=== PATIENT | female | born 2000 | race Caucasian/White ===

== ENCOUNTER 2023-06-11 09:49 | Emergency (ER) | payer OTHER, MEDICAID, SELFPAY ==
[2023-06-11] VITALS (29 sets, daily range): BP systolic 104–129; BP diastolic 47–81; PULSE 63–105; RESP 14–32; TEMP 36.9; O2SAT 97–100; BMI 31.1
--- NOTE | 2023-06-11 10:13 | PC.NURSE ---
Patient report given by Tr at [facility] to this RN.
--- NOTE | 2023-06-11 10:24 | DI.US.S_ITS ---
PROCEDURE: US OB <= 14 WEEKS FETUS INDICATIONS: PAIN OUTSIDE/PRIOR DATING DATA: Last menstrual period (LMP): 03/20/2023. LMP-based estimated date of delivery (FAREED): 12/15/2023. First dating scan (date and location): 06/11/2023. Estimated date of delivery (FAREED) from first dating scan: 12/12/2023 TECHNIQUE: Real-time scanning was performed of the fetus and maternal pelvic organs, with image documentation. Endovaginal scanning was also performed to better visualize the fetus and maternal ovaries. COMPARISON: None. FINDINGS: Embryo: A single living intrauterine gestation is present, with a heart rate of 168 beats per minute. biometrics: BPD: 24 mm; 14 weeks 0 days Head circumference: 89 mm; 14 weeks 0 days Abdominal circumference: 272 mm; 13 weeks 5 days Femur length: 11 mm; 13 weeks 2 days Estimated gestational age by clinical factors: 13 weeks 2 days Compazine gestational age by current ultrasound: 13 weeks 5 days Maternal organs: Ovaries not seen. IMPRESSION: Single living intrauterine gestation. We strive to produce accurate, complete, and clear reports of imaging services. To assist us in improving patient care, this report was composed using standard report templates and voice recognition software. Therefore, it may contain abnormal punctuation, insertions and/or omissions. Occasional wrong-word or sound-alike substitutions may occur. Though we review the report and make efforts to correct it, we do recommend that the report be read carefully in proper context to recognize any text inaccuracies. Dictated by: Ángela Horton M.D. on 06/11/2023 at 11:12 Approved by: Ángela Horton M.D. on 06/11/2023 at 11:14
--- NOTE | 2023-06-11 10:26 | ED.ABDPAIN ---
HPI - Abdominal Pain General Chief Complaint: Abdominal Pain Stated Complaint: N/V 36hr 14 wk preg Rt sided abd pain. Time Seen by Provider: 06/11/23 10:11 Source: patient and EMS Mode of arrival: EMS History of Present Illness HPI narrative: Patient flown here from [place]. Patient thinks she is about 14 weeks . LMP March 10, 2023. She will have her 1st OB appointment next Thursday. With [facility] in [place]. Patient is A3. Her previous miscarriages were less than 5 weeks' gestation. Last week she had 4 days vaginal bleeding which was equivalent amount to her menstrual cycle. No bleeding since then. However in the past 36 hours had pelvic cramping and nausea and vomiting. Related Data Previous Rx's Medication Instructions Recorded ondansetron 4 mg disintegrating 4 mg PO Q8H PRN nausea and 06/11/23 tablet vomiting #20 tabs Allergies Allergy/AdvReac Type Severity Reaction Status Date / Time No Known Drug Allergies Allergy Verified 06/11/23 10:25 Review of Systems Review of Systems Narrative: GENERAL: negative chills, fatigue, malaise, fever, sweats. HEENT: negative sinus pain, ear pain, sore throat RESPIRATORY: negative dyspnea, cough CARDIOVASCULAR: negative chest pain, palpitations GASTROINTESTINAL: Positive nausea, vomiting, abdominal pain : negative dysuria, frequency, hematuria MUSCULOSKELETAL: negative muscle or bony pain SKIN: negative rash, skin lesions NEUROLOGIC: negative weakness, numbness ROS Unobtainable: All systems reviewed & are unremarkable except as noted in HPI and below Patient History Social History Smoking Status: Former smoker Smoking Status: Former smoker Substance Use Type: does not use Exam Narrative Exam Narrative: GENERAL: in no distress, not toxic not dyspneic HEAD: Normocephalic. EYES: Pupils equal round pink conjunctivae ENT: Mucous membranes moist. NECK: Trachea midline. CARDIOVASCULAR: Regular rate and rhythm RESPIRATORY: Clear to auscultation. Breath sounds equal bilaterally. No wheezes, rales, or rhonchi. GASTROINTESTINAL: Abdomen soft, mild suprapubic tenderness. No peritoneal signs. Bowel sounds are present. No CVA tenderness. No pain out of proportion to exam. EXTREMITIES: No gross deformities. BACK: No flank tenderness. NEURO: AOx4. SKIN: Warm and dry PSYCH: Not anxious, is cooperative Initial Vital Signs Initial Vital Signs: Vital Signs Temperature 98.4 F 06/11/23 10:06 Pulse Rate 80 06/11/23 10:06 Respiratory Rate 20 06/11/23 10:06 Blood Pressure 129/79 06/11/23 10:06 Pulse Oximetry 99 06/11/23 10:06 Oxygen Delivery Method Room Air 06/11/23 10:06 Course Orders Ordered: Discontinued Medications Diphenhydramine HCl (Diphenhydramine 50 Mg/Ml Vial) 50 mg IV NOW ONE Stop: 06/11/23 14:20 Last Admin: 06/11/23 14:33 Dose: 50 mg Documented By: ROYCE Sodium Chloride (Normal Saline 0.9%) 1,000 mls @ 1,000 mls/hr IV BOLUS ONE Stop: 06/11/23 11:22 Last Infusion: 06/11/23 11:55 Dose: Infused Documented By: Admin: 06/11/23 10:30 Dose: 1,000 mls/hr Documented By: ROYCE Sodium Chloride (Normal Saline 0.9%) 1,000 mls @ 1,000 mls/hr IV BOLUS ONE Stop: 06/11/23 13:05 Last Infusion: 06/11/23 13:14 Dose: Infused Documented By: Admin: 06/11/23 12:11 Dose: 1,000 mls/hr Documented By: ROYCE Ondansetron HCl (Ondansetron 4 Mg/2 Ml Inj) 4 mg IV NOW ONE Stop: 06/11/23 10:24 Last Admin: 06/11/23 10:30 Dose: 4 mg Documented By: ROYCE Vital Signs Vital signs: Vital Signs - 8 hr 06/11/23 10:06 06/11/23 10:10 06/11/23 10:11 Temperature 98.4 F Pulse Rate 80 85 Respiratory Rate 20 32 H Blood Pressure 129/79 125/72 Pulse Oximetry 99 99 Oxygen Delivery Method Room Air 06/11/23 10:11 06/11/23 10:15 06/11/23 10:15 Temperature Pulse Rate 68 67 Respiratory Rate 26 H 27 H Blood Pressure 123/81 Pulse Oximetry 99 99 Oxygen Delivery Method 06/11/23 10:30 06/11/23 10:30 06/11/23 10:40 Temperature Pulse Rate 70 Respiratory Rate 21 Blood Pressure 104/60 110/68 Pulse Oximetry 97 Oxygen Delivery Method 06/11/23 10:40 06/11/23 10:45 06/11/23 10:45 Temperature Pulse Rate 72 66 Respiratory Rate 28 H 23 Blood Pressure 112/68 Pulse Oximetry 99 97 Oxygen Delivery Method 06/11/23 11:00 06/11/23 11:00 06/11/23 11:22 Temperature Pulse Rate 69 80 Respiratory Rate 23 19 Blood Pressure 107/56 L Pulse Oximetry 97 98 Oxygen Delivery Method 06/11/23 11:23 06/11/23 11:23 06/11/23 11:30 Temperature Pulse Rate 68 Respiratory Rate 14 Blood Pressure 120/47 L 118/56 L Pulse Oximetry 98 Oxygen Delivery Method 06/11/23 11:30 06/11/23 11:45 06/11/23 11:45 Temperature Pulse Rate 71 66 Respiratory Rate 17 14 Blood Pressure 115/56 L Pulse Oximetry 99 99 Oxygen Delivery Method 06/11/23 12:00 06/11/23 12:00 06/11/23 12:15 Temperature Pulse Rate 76 Respiratory Rate 23 Blood Pressure 121/61 111/63 Pulse Oximetry 99 Oxygen Delivery Method 06/11/23 12:15 06/11/23 12:30 06/11/23 12:30 Temperature Pulse Rate 63 88 Respiratory Rate 19 23 Blood Pressure 108/67 Pulse Oximetry 100 99 Oxygen Delivery Method 06/11/23 12:45 06/11/23 12:45 06/11/23 13:00 Temperature Pulse Rate 69 Respiratory Rate 25 H Blood Pressure 113/64 109/61 Pulse Oximetry 100 Oxygen Delivery Method 06/11/23 13:00 Temperature Pulse Rate 65 Respiratory Rate 22 Blood Pressure Pulse Oximetry 100 Oxygen Delivery Method MDM - Abdominal Pain Lab Data 06/11/23 10:00 06/11/23 10:00 Labs: Lab Results 06/11/23 06/11/23 06/11/23 Range/Units 10:00 10:40 11:16 WBC 15.5 H (4.5-11.0) X10^3/uL RBC 3.95 L (4.0-5.2) X10^6/uL Hgb 12.9 (12.0-16.0) g/dL Hct 37.1 (36-46) % MCV 93.9 (80-100) fL MCH 32.6 (26-34) PG MCHC 34.7 (30-36) % RDW 12.8 (11.6-14.8) % Plt Count 245 (150-400) X10^3/uL Neut % (Auto) 90.5 H (50-75) % Lymph % (Auto) 6.0 L (25-40) % Republic % (Auto) 3.1 (3-14) % Eos % (Auto) 0.0 L (2-4) % Baso % (Auto) 0.4 (0-2) % Neut # (Auto) 22656 H (9760-5011) /uL Lymph # (Auto) 900 L (2115-7354) /uL Republic # (Auto) 500 (0-900) /uL Eos # (Auto) 0 (0-450) /uL Baso # (Auto) 100 (0-100) /uL Sodium 136 L (137-145) mmol/L Potassium 4.1 (3.4-5.1) mmol/L Chloride 109 H (98-107) mmol/L Carbon Dioxide 18 L (22-32) mmol/L BUN 9 (7-17) mg/dL Creatinine 0.54 (0.52-1.04) mg/dL Estimated GFR > 60 (>60) mL/min BUN/Creatinine Ratio 16.7 (6-22) Glucose 89 (70-100) mg/dL Calcium 9.6 (8.4-10.2) mg/dL Total Bilirubin 1.1 (0.2-1.3) mg/dL AST 31 (14-36) IU/L ALT 14 (<35) IU/L Alkaline Phosphatase 53 (38-126) U/L Total Protein 8.0 (6.3-8.2) g/dL Albumin 4.2 (3.5-5.0) g/dL Globulin 3.8 (1.7-4.1) g/dL Albumin/Globulin Ratio 1.1 (1.0-2.8) HCG, Quant 65911 mIU/mL Urine Color Yellow Urine Appearance Clear Urine pH 6.0 (4.5-8.0) Ur Specific [place] 1.015 (1.000-1.035) Urine Protein Negative (Negative) Urine Glucose (UA) Negative (Negative) g/dL Urine Ketones 3+ H (NEGATIVE) Urine Occult Blood 2+ H (Negative) Urine Nitrate Negative (Negative) Urine Bilirubin Negative (NEGATIVE) Urine Urobilinogen 0.2 (0.2) E.U./dL Ur Leukocyte Esterase Trace H (NEGATIVE) Urine RBC 10-30/hpf H (0-5/HPF) Urine WBC 1-5/hpf (0-5/HPF) Ur Squamous Epith Cells 1-5 /hpf (0-5/HPF) Urine Bacteria Few (2-10) H (None) Ur Culture Indicated? Specimen cultured Vol Urine Centrifuged 10ml (spun) Blood Type A Positive Antibody Screen Negative Point of care testing: Urine Dip Bedside Urine Glucose Negative Bedside Urine Bilirubin - Negative Bedside Urine Ketone +++ 80 Urine Specific [place] 1.015 Bedside Urine Occult Blood +++ Bedside Urine pH 6.5 Bedside Urine Protein +/- 15 Bedside Urine Nitrite - Negative Bedside Urine Leukocytes - Negative Esterase Imaging Data US - OB: Radiologist's Impression: [address] [address] Ultrasound Report Signed Patient: Katie Briscoe MR#: [id number] : 2000 Acct:[id number] Age/Sex: 22 / F Date of Service: 06/11/23 Loc: ED Accession Number: [id number] Procedure: US OB <= 14 weeks fetus Ordering Provider: Josue Melgar MD PROCEDURE: US OB <= 14 WEEKS FETUS INDICATIONS: PAIN OUTSIDE/PRIOR DATING DATA: Last menstrual period (LMP): 03/20/2023. LMP-based estimated date of delivery (FAREED): 12/15/2023. First dating scan (date and location): 06/11/2023. Estimated date of delivery (FAREED) from first dating scan: 12/12/2023 TECHNIQUE: Real-time scanning was performed of the fetus and maternal pelvic organs, with image documentation. Endovaginal scanning was also performed to better visualize the fetus and maternal ovaries. COMPARISON: None. FINDINGS: Embryo: A single living intrauterine gestation is present, with a heart rate of 168 beats per minute. biometrics: BPD: 24 mm; 14 weeks 0 days Head circumference: 89 mm; 14 weeks 0 days Abdominal circumference: 272 mm; 13 weeks 5 days Femur length: 11 mm; 13 weeks 2 days Estimated gestational age by clinical factors: 13 weeks 2 days Compazine gestational age by current ultrasound: 13 weeks 5 days Maternal organs: Ovaries not seen. IMPRESSION: Single living intrauterine gestation. We strive to produce accurate, complete, and clear reports of imaging services. To assist us in improving patient care, this report was composed using standard report templates and voice recognition software. Therefore, it may contain abnormal punctuation, insertions and/or omissions. Occasional wrong-word or sound-alike substitutions may occur. Though we review the report and make efforts to correct it, we do recommend that the report be read carefully in proper context to recognize any text inaccuracies. Dictated by: Ángela Horton M.D. on 06/11/2023 at 11:12 Approved by: Ángela Horton M.D. on 06/11/2023 at 11:14 [facility] Narrative Medical decision making narrative: Patient flown here from [place]. Patient thinks she is about 14 weeks . LMP March 10, 2023. She will have her 1st OB appointment next Thursday. With [facility] in [place]. Patient is A3. Her previous miscarriages were less than 5 weeks' gestation. Last week she had 4 days vaginal bleeding which was equivalent amount to her menstrual cycle. No bleeding since then. However in the past 36 hours had pelvic cramping and nausea and vomiting. After history and exam CBC CMP quantitative HCG type and screen pelvic ultrasound Zofran normal saline Patient not had any dizziness or syncope with her vaginal bleeding last week. Has not had any vaginal bleeding this week [facility] CC: Pelvic pain vomiting Complicating co-morbidities: 14 weeks' gestation Data collected from: Patient Medical records reviewed: No recent visit for this complaint Differential considered: Includes but not limited to ectopic complete missed appendicitis kidney stone dehydration hyperemesis Exam documented above, pertinent findings include: Tender suprapubic region Lab Test results independently reviewed as above. Pertinent findings: WBC 15.5 likely due to demargination/emesis and not infectious. Sodium 136 potassium 4.1 BUN 9 creatinine 0.54 GFR greater than 60 quantitative hCG 73,936 Urinalysis trace leukocytes negative nitrate WBC 1 5 A positive blood, no RhoGAM indicated Imaging studies independently reviewed: ultrasound single living intrauterine gestation. heart rate 168 beats per minute Consultations: None indicated at this time. Treatments: Zofran normal saline Re-evaluations: 3:57 p.m.. Patient feeling better after Zofran and Benadryl and 2 L of normal saline. Otherwise laboratory studies imaging studies are reassuring. She has appointment on Thursday. Work note provided. Return precautions reviewed. Boyfriend at bedside. They desire discharge home she states she is taking vitamins Discussion: Appropriate for discharge home. Patient feeling much better after IV fluids and Zofran and Benadryl. Not toxic at discharge. Return precautions reviewed. She has appointment with OBGYN next week. Work note provided. Prescription for Zofran provided. They desire discharge home Diagnosis: Hyperemesis gravidarum Discharge Plan Departure Patient Disposition: Home Clinical Impression: Hyperemesis gravidarum Instructions: DI for Hyperemesis Gravidarum Activity Restrictions/Additional Instructions: Please keep well hydrated. See your OBGYN doctor next Thursday as scheduled. Please continue eruc-cap-fncfjey vitamins. Nausea administration prescription has been sent home with you. Return if worse if any questions or concerns. Work note has been provided for you as well. Prescriptions: New ondansetron 4 mg tablet,disintegrating 4 mg PO Q8H PRN (Reason: nausea and vomiting) Qty: 20 0RF Stand Alone Forms: Patient Portal/API, Work Release Note
[2023-06-11] MEDS: SODIUM CHLORIDE 0.9% 1,000 ML 1000 ML IV ×2 (10:30→12:11)
[2023-06-11] MEDS: ONDANSETRON 4 MG/2 ML INJ IV (10:30)
[2023-06-11 10:41] LABS: Add Manual Diff / Slide Review NO; Basophils Absolute Auto 100 /uL (0-100); Basophils Percent Auto 0.4 % (0-2); Eosinophils Absolute Auto 0 /uL (0-450); Hematocrit 37.1 % (36-46); Hemoglobin 12.9 g/dL (12.0-16.0); Lymphocytes Absolute Auto 900 /uL (1100-4500); Mean Corpuscular HGB Conc 34.7 % (30-36); Mean Corpuscular Hemoglobin 32.6 PG (26-34); Mean Corpuscular Volume 93.9 fL (80-100); Monocytes Absolute Auto 500 /uL (0-900); Monocytes Percent Auto 3.1 % (3-14); Neutrophils Absolute Auto 14100 /uL (1500-7000); Neutrophils Percent Auto 90.5 % (50-75); Platelet Count 245 X10^3/uL (150-400); Red Blood Cell Count 3.95 X10^6/uL (4.0-5.2); Red Cell Distribution Width 12.8 % (11.6-14.8); White Blood Cell Count 15.5 X10^3/uL (4.5-11.0)
[2023-06-11 10:47] LABS: Alanine Aminotransferase 14 IU/L (<35); Albumin 4.2 g/dL (3.5-5.0); Albumin Globulin Ratio 1.1 (1.0-2.8); Alkaline Phosphatase 53 U/L (38-126); Aspartate Aminotransferase 31 IU/L (14-36); BUN Creatinine Ratio 16.7 (6-22); Bilirubin Total 1.1 mg/dL (0.2-1.3); Blood Urea Nitrogen 9 mg/dL (7-17); Calcium 9.6 mg/dL (8.4-10.2); Carbon Dioxide 18 mmol/L (22-32); Chloride 109 mmol/L (98-107); Estimated Glomerular Filt Rate > 60 mL/min (>60); Globulin 3.8 g/dL (1.7-4.1); Glucose 89 mg/dL (70-100); Sodium 136 mmol/L (137-145)
[2023-06-11 10:48] LABS: Potassium 4.1 mmol/L (3.4-5.1)
[2023-06-11 11:28] LABS: HCG Quantitative /Beta subunit 73936 mIU/mL; HEMOLYSIS 78 (0-50)
[2023-06-11 11:44] LABS: Appearance Urine UA CLEAR; Bilirubin Urine UA NEGATIVE (NEGATIVE); Color Urine UA YELLOW; Glucose Urine UA NEGATIVE (Negative); Ketones Urine UA 3+ (NEGATIVE); Leukocyte Esterase Urine UA TRACE (NEGATIVE); Nitrite Urine UA NEGATIVE (Negative); Occult Blood Urine UA 2+ (Negative); Protein Urine UA NEGATIVE (Negative); Specific Gravity Urine UA 1.015 (1.000-1.035); Urobilinogen Urine UA 0.2 E.U./dL (0.2)
[2023-06-11 11:59] LABS: Bacteria Urine Few (2-10); RBC Urine 10-30/HPF (0-5/HPF); Squamous Epithelial Cell Urine 1-5 /HPF (0-5/HPF); Urine Volume 10mL (spun); WBC Urine 1-5/HPF (0-5/HPF)
[2023-06-11 12:00] LABS: Culture Indicated Urine Specimen Cultured
[2023-06-11] MEDS: diphenhydrAMINE 50 MG/ML VIAL IV (14:33)
== END 2023-06-11 16:06 | disposition home or self-care (01) ==
PROVIDERS: Emergency Provider Emergency Medicine
DX: O21.0 Mild hyperemesis gravidarum (principal); R10.2 Pelvic and perineal pain; Z3A.14 14 weeks gestation of pregnancy
CPT/HCPCS: 36415; 76801; 80053; 81001; 81003; 84702; 85025; 86850; 86900; 86901; 87086; 96361; 96374; 96375; 99284; J1200; J2405

== ENCOUNTER → 2023-09-14 11:19 | Outpatient (CLI) | payer OTHER, MEDICAID, SELFPAY ==
[2023-09-14 14:08] LABS: Add Manual Diff / Slide Review NO; Basophils Absolute Auto 0 /uL (0-100); Basophils Percent Auto 0.2 % (0-2); Eosinophils Absolute Auto 100 /uL (0-450); Eosinophils Percent Auto 0.3 % (2-4); Hematocrit 34.8 % (36-46); Hemoglobin 11.9 g/dL (12.0-16.0); Lymphocytes Absolute Auto 1600 /uL (1100-4500); Lymphocytes Percent Auto 10.3 % (25-40); Mean Corpuscular HGB Conc 34.1 % (30-36); Mean Corpuscular Hemoglobin 32.7 PG (26-34); Mean Corpuscular Volume 95.9 fL (80-100); Monocytes Absolute Auto 1000 /uL (0-900); Neutrophils Absolute Auto 12400 /uL (1500-7000); Neutrophils Percent Auto 82.2 % (50-75); Platelet Count 258 X10^3/uL (150-400); Red Blood Cell Count 3.63 X10^6/uL (4.0-5.2)
[2023-09-14 14:29] LABS: GTT (PREG) 1 Hour PP 50gm Dose 110 mg/dL (76-139)
== END ==
PROVIDERS: Referring Provider Family Medicine; Visit Provider Family Medicine
DX: Z34.80 Encounter for supervision of other normal pregnancy, unspecified trimester (principal)
CPT/HCPCS: 36415; 82950; 85025; 86850

== ENCOUNTER 2023-10-17 22:05 | Observation (INO) | payer OTHER, MEDICAID, SELFPAY ==
[2023-10-17] MEDS: METOCLOPRAMIDE 10 MG/2 ML INJ IV (22:55)
== END 2023-10-17 23:41 | disposition home or self-care (01) ==
LOC: LABOR 22:08
PROVIDERS: Admitting Provider Student in an Organized Health Care Education/Training Program; PCP Family Medicine; Referring Provider Student in an Organized Health Care Education/Training Program; Visit Provider Student in an Organized Health Care Education/Training Program
DX: O36.8130 Decreased fetal movements, third trimester, not applicable or unspecified (principal); Z3A.32 32 weeks gestation of pregnancy
CPT/HCPCS: 59025; 96360; G0378; G0379; J2765

== ENCOUNTER → 2023-11-27 11:30 | Outpatient (CLI) | payer OTHER, MEDICAID, SELFPAY ==
[2023-11-28 07:59] LABS: Strep Grp B PCR NEG for Grp B Strep
== END ==
PROVIDERS: PCP Family Medicine; Referring Provider Student in an Organized Health Care Education/Training Program; Visit Provider Student in an Organized Health Care Education/Training Program
DX: Z3A.38 38 weeks gestation of pregnancy (principal)
CPT/HCPCS: 87653

== ENCOUNTER → 2023-11-27 12:03 | Outpatient (CLI) | payer OTHER, MEDICAID, SELFPAY ==
--- NOTE | 2023-11-27 12:04 | DI.US.S_ITS ---
PROCEDURE: US OB LIMITED INDICATIONS: H/O Placenta Previa, Fluid Check OUTSIDE/PRIOR DATING DATA: Last menstrual period (LMP): 03/20/2023. LMP-based estimated date of delivery (FAREED): 12/15/2023. First dating scan (date and location): 06/11/2023. Estimated date of delivery (FAREED) from first dating scan: 12/12/2023. TECHNIQUE: Real-time scanning was performed of the fetus, with image documentation. Endovaginal scanning: Not performed COMPARISON: Outside Facility, US, US OB >= 14 WEEKS FETUS, 07/23/2023, 12:58. FINDINGS: General: A single living intrauterine gestation is present. Presentation: Vertex. Placenta: Placental position is anterior, without previa. No low lying placenta. Amniotic fluid index: 12.3 cm, normal range is 5-24 cm. Single deepest vertical pocket is 5 cm. heart rate: 133 beats per minute. Maternal cervical canal: Not well seen. Clinically estimated gestational age: 37 weeks 3 days Four-chamber view of the heart is normal. Outflow tracks are not well seen. IMPRESSION: 1. Parker living intrauterine at 37 weeks 3 days based on prior ultrasound. 2. Normal amniotic fluid. No placental previa. We strive to produce accurate, complete, and clear reports of imaging services. To assist us in improving patient care, this report was composed using standard report templates and voice recognition software. Therefore, it may contain abnormal punctuation, insertions and/or omissions. Occasional wrong-word or sound-alike substitutions may occur. Though we review the report and make efforts to correct it, we do recommend that the report be read carefully in proper context to recognize any text inaccuracies. Dictated by: Yefri Hollingsworth M.D. on 11/27/2023 at 16:45 Approved by: Yefri Hollingsworth M.D. on 11/27/2023 at 16:50
== END ==
PROVIDERS: PCP Family Medicine; Referring Provider Student in an Organized Health Care Education/Training Program; Visit Provider Student in an Organized Health Care Education/Training Program
DX: Z36.89 Encounter for other specified antenatal screening (principal); Z3A.37 37 weeks gestation of pregnancy; Z87.59 Personal history of other complications of pregnancy, childbirth and the puerperium
CPT/HCPCS: 76815; 87653

== ENCOUNTER 2024-02-13 14:12 | Emergency (ER) | payer OTHER, MEDICAID, SELFPAY ==
[2024-02-13 14:16] VITALS: BP 108/73; PULSE 90; RESP 16; TEMP 36.5; O2SAT 100; BMI 31.8
--- NOTE | 2024-02-13 15:56 | ED_ITS ---
HPI - Psych General Chief Complaint: Psychiatric Symptoms Stated Complaint: Post- Depression/Mental Health Time Seen by Provider: 02/13/24 15:56 Source: patient, RN notes reviewed and old records reviewed Mode of arrival: Ambulatory Limitations: no limitations History of Present Illness HPI Narrative: 23-year-old female with 2 prior miscarriages who presents with history of longstanding depression who feels depression is worsening. She describes depressive feelings, anxiety difficulty and sometimes feeling overwhelmed. Denies any SI or HI. No concerns for harming herself or baby at this time. She notes sleep has been difficult she has some insomnia even when baby sleeping at nighttime. She has not typically getting more than 3 or 4 hours increments at the most sometimes only 2 hours. Patient denies any hallucinations. She does have supportive family but lives on [address] so has a little bit isolated from some of them that live here in [place]. And notes extended family is also assisting other family members with special needs. She has a who she finds supportive but is working and gets about 1-2 hours of relief daily but typically uses thought to perform daily chores. She states she was currently on fluoxetine was on that intermediate manager has had 2 dose can increase his since delivery with no real improvement. States she was once on 1 additional medication when she was much younger but does not recall the name. No known drug allergies. Does use tobacco daily, occasional marijuana, no alcohol. Her primary care provider Arianna on [address] has been helping her with the medications. Got care here but was flown off [place] for delivery they actually delivered in [place]. Related Data Home Medications Medication Instructions Recorded Confirmed [id number] 400 mcg-om3 35 mg-dha 25 tab PO 08/03/23 11/27/23 mg-epa 5 mg-fish oil chewable tablet fluoxetine 40 mg capsule 40 mg PO DAILY 02/13/24 02/13/24 Allergies Allergy/AdvReac Type Severity Reaction Status Date / Time No Known Drug Allergies Allergy Verified 11/27/23 11:16 Review of Systems Review of Systems ROS Unobtainable: All systems reviewed & are unremarkable except as noted in HPI and below Patient History Medical History OCD (obsessive compulsive disorder) Migraine with aura History of recurrent miscarriages Surgical History Omega teeth extracted (~2019) Family History Mother Ovarian cancer Ovarian cyst History of recurrent miscarriages Grandfather Leukemia Grandmother Breast cancer Grandmother Breast cancer Father Drug abuse Family estrangement Social History marital status: unmarried,living together number of children: 0 (in process of adopting S/O's 7 year old nephew w/ special needs) household members: significant other and family lives independently: Yes caregiver/support person: No housing: other (accessory building (power, insulation), goes into the house for water) pets and animals: Yes (2 cats/dog) education level: college (some college) 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, 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, 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) current occupational exposures/hazards: No special rosina needs: No travel history: over 6 months ago seatbelt use: always helmet use: No (inconsistent) water heater temp set < 120 deg: Yes working smoke detector in home: Yes fire extinguisher in home: Yes carbon monox detector in home: Yes firearms in home: No do you feel safe at home: Yes Smoking Status: Current every day smoker Tobacco: How many years used: 9 second hand exposure: Yes (S/O and his father both smoke, not around pt) alcohol intake: former (excessive prior to Mar 2023) substance use type: marijuana (still using, counseled to stop while /) during the past year weight has: other (wide fluctuations ~125-170) daily servings fruits/ve-4 caffeine: No Type(s) of exercise: walking and other (multiple physical jobs) frequency: daily duration: 15-30 minutes/day Smoking Status: Current every day smoker tobacco type: vaping Substance Use Type: marijuana Exam Narrative Exam Narrative: GENERAL: Alert and oriented x three, female in mild distress HEENT: Head normocephalic, atraumatic, EOMI, pupils reactive, face symmetric, moist mucous membranes NECK: Supple, full range of motion CARDIOVASCULAR: Regular rate and rhythm without murmurs, rubs or gallops. RESPIRATORY: Breath sounds equal bilaterally, no wheezes rales or rhonchi. ABDOMEN: Soft, nontender. Normoactive bowel sounds all 4 quadrants. No guarding or rebound, rigidity, no mass : No CVA tenderness EXTREMITIES: Normal range of motion, no clubbing or edema. Neurovascularly intact NEUROLOGICAL: Cranial nerves II through XII grossly intact. Moving all extremities SKIN: Warm, dry, no petechiae, no rashes or lesions. PSYCH: Describes depressive thoughts, no SI, no HI, no hallucinations, positive for anxiety. Initial Vital Signs Initial Vital Signs: Vital Signs Temperature 97.7 F 02/13/24 14:16 Pulse Rate 90 02/13/24 14:16 Respiratory Rate 16 02/13/24 14:16 Blood Pressure 108/73 02/13/24 14:16 Pulse Oximetry 100 02/13/24 14:16 Oxygen Delivery Method Room Air 02/13/24 14:16 Course Orders Ordered: ED Orders 02/13/24 14:23 Urine Drug Screen, Rapid Stat 02/13/24 14:28 Consult to [facility] - Rn Vascular Stat 02/13/24 16:45 CBC Auto Diff [Complete Blood Count AUTO DIFF] Stat CMP [Comprehensive Metabolic Panel] Stat ETOH [Ethanol (ETOH)] Stat TSH [Thyroid Stimulating Hormone] Stat Vital Signs Vital signs: Vital Signs - 8 hr 02/13/24 14:16 02/13/24 17:28 Temperature 97.7 F 98.1 F Pulse Rate 90 77 Respiratory Rate 16 18 Blood Pressure 108/73 118/57 L Pulse Oximetry 100 98 Oxygen Delivery Method Room Air Room Air MDM - Psych Lab Data 02/13/24 16:45 02/13/24 16:45 Labs: Lab Results 02/13/24 02/13/24 Range/Units 14:23 16:45 WBC 8.3 (4.5-11.0) X10^3/uL RBC 4.10 (4.0-5.2) X10^6/uL Hgb 13.2 (12.0-16.0) g/dL Hct 39.4 (36-46) % MCV 96.2 (80-100) fL MCH 32.2 (26-34) PG MCHC 33.5 (30-36) % RDW 13.6 (11.6-14.8) % Plt Count 232 (150-400) X10^3/uL Neut % (Auto) 65.8 (50-75) % Lymph % (Auto) 24.7 L (25-40) % Furnas % (Auto) 5.9 (3-14) % Eos % (Auto) 1.9 L (2-4) % Baso % (Auto) 1.7 (0-2) % Neut # (Auto) 5400 (2661-8554) /uL Lymph # (Auto) 2000 (4928-7786) /uL Furn[place] # (Auto) 500 (0-900) /uL Eos # (Auto) 200 (0-450) /uL Baso # (Auto) 100 (0-100) /uL Sodium 138 (137-145) mmol/L Potassium 4.1 (3.4-5.1) mmol/L Chloride 104 (98-107) mmol/L Carbon Dioxide 31 (22-32) mmol/L BUN 16 (7-17) mg/dL Creatinine 0.91 (0.52-1.04) mg/dL Estimated GFR > 60 (>60) mL/min BUN/Creatinine Ratio 17.6 (6-22) Glucose 73 (70-100) mg/dL Calcium 9.6 (8.4-10.2) mg/dL Total Bilirubin 0.7 (0.2-1.3) mg/dL AST 23 (14-36) IU/L ALT 18 (<35) IU/L Alkaline Phosphatase 69 (38-126) U/L Total Protein 7.6 (6.3-8.2) g/dL Albumin 4.4 (3.5-5.0) g/dL Globulin 3.2 (1.7-4.1) g/dL Albumin/Globulin Ratio 1.4 (1.0-2.8) TSH 0.292 L (0.47-4.68) uIU/mL Free T4 1.09 (0.78-2.19) ng/dL U Opiates 300ng/mL cut Negative (Negative) Ur Oxycodone Screen Negative (Negative) Urine Methadone Screen Negative (Negative) Ur Barbiturates Screen Negative (Negative) U Tricyclic Antidepress Negative (Negative) Ur Phencyclidine Scrn Negative (Negative) Ur Amphetamines Screen Negative (Negative) U Methamphetamines Scrn Negative (Negative) Ur MDMA Scrn (Ecstasy) Negative (Negative) U Benzodiazepines Scrn Negative (Negative) Urine Cocaine Screen Negative (Negative) U Marijuana (THC) Screen Positive H (Negative) Urine pH Normal (Normal) Urine Specific Gwynn Normal (Normal) Ethyl Alcohol < 10 ( - 10) mg/dL Ur Creatinine Normal (Normal) Point of Care Testing Test Results Negative Urine Dip Bedside Urine Glucose Negative Bedside Urine Bilirubin - Negative Bedside Urine Ketone - Negative Urine Specific Gwynn 1.025 Bedside Urine Occult Blood + Bedside Urine pH 6.0 Bedside Urine Protein - Negative Bedside Urine Urobilinogen - Negative Bedside Urine Nitrite - Negative Bedside Urine Leukocytes - Negative Esterase MDM Narrative Medical decision making narrative: 23-year-old female history of depression prior to has worsened since delivering 2 months ago, no SI or HI. Patient has been taking fluoxetine had a dose increase in the past several weeks but not significantly improved. Patient is seeking assistance to improve her symptoms. Does not describe any high-risk factors that require hospitalization at this time. As she was recently we will check labs including CBC, CMP and TSH. Patient does currently notes she has not breast-feeding anymore. She does note she has supportive family but is little bit isolated geographically [place] also assist with caring for another special needs grandchild. Discussed medication adjustment. Did discuss trying to help patient get at least 6 increment sleep on a more regular basis this is challenging based on her current support system. Reviewed labs patient's white count 8.3 hemoglobin is 13.3 platelets are 232. Chemistries, renal function LFTs are appropriate. TSH is pending but patient is hopeful to catch the [place] back to [place]. As they are limited [facility]ia asked patient to follow up this level with her primary care. Did talk to Dr. Lima, peoplesoft hrms developer regarding potential options she would recommend potentially sertraline in place of fluoxetine possibly to transition patient off or if she preferred could try a low-dose oral contraceptive such as Loestrin to to help with patient hormonal adjustments which may also help with mood and depression. All discussed regular sleep. Patient is not currently . Also recommended the warm line support. Patient received this from Leila or [facility]RE as well as additional resources. She also noted there is a new psychiatrist Dr. Hood who has cared for several patient has recently and is currently accepting patients. Reviewed all this with the patient she feels comfortable following up for TSH with her physician. She just started a low dose hormonal contraceptives 1 or 2 days ago and we discussed she was going to continue with this her current fluoxetine but we will talk with her physician about adjusting her medications if she was not having improvement. She has a resources available did discuss little bit longer sleep cycle maybe helpful for her if she is able to work this out with her family and support system. And return precautions. Also reviewed follow up with Psychiatry and additional resources as well. Patient feels comfortable with this plan, contracts for safety states she will return if any worsening symptoms or concerning changes. Discharge Plan Departure Patient Disposition: Home Clinical Impression: Post depression Instructions: DI for Depression Activity Restrictions/Additional Instructions: Follow up with your primary care provider at your scheduled appointment. Also included as an option for Dr. Hood, he has a psychiatrist that can also help with medication management and is currently taking patient's locally. Please call to set up a appointment. As discussed you can continue your fluoxetine, OBGYN did recommend low-dose oral contraceptive which sounds like you just started in the last few days. Continue this to see if it helps with your symptoms. If it is not having any improvement there next potential recommendation would be to stop the fluoxetine and transition to sertraline. I would also recommend talking with family and your support system to see if you can get a regular window 6 hours of uninterrupted sleep on a more regular basis. Please return or call 911 if you are having any worsening thoughts, if you feel unsafe at any time if you have any thoughts of harming yourself or others, if you feel you are having difficulty managing your symptoms or need re-evaluation. Prescriptions: No Action [id number]-jyri oil 400 mcg-35 mg -25 mg-5 mg tablet,chewable PO fluoxetine 40 mg capsule 40 mg PO DAILY Referrals: Guicho Hood DO [Physician] - Arianna Dailey MD [Primary Care Provider] - Stand Alone Forms: Patient Portal/API/Survey
[2024-02-13 16:24] LABS: UR Morphine/Opiate cutoff 300 Negative (Negative); Ur Creatinine Normal (Normal); Ur Specific Gravity Normal (Normal); Urine Amphetamines Negative (Negative); Urine Barbiturates Negative (Negative); Urine Benzodiazepines Negative (Negative); Urine Cocaine Negative (Negative); Urine MDMA Negative (Negative); Urine Methadone Negative (Negative); Urine Methamphetamines Negative (Negative); Urine Oxycodone Negative (Negative); Urine Phencyclidine Negative (Negative); Urine Tetrahydrocannabinol Positive (Negative); Urine Tricyclic Antidepressant Negative (Negative); Urine pH Normal (Normal)
[2024-02-13 16:55] LABS: Add Manual Diff / Slide Review NO; Basophils Absolute Auto 100 /uL (0-100); Basophils Percent Auto 1.7 % (0-2); Eosinophils Absolute Auto 200 /uL (0-450); Eosinophils Percent Auto 1.9 % (2-4); Hematocrit 39.4 % (36-46); Hemoglobin 13.2 g/dL (12.0-16.0); Lymphocytes Absolute Auto 2000 /uL (1100-4500); Lymphocytes Percent Auto 24.7 % (25-40); Mean Corpuscular HGB Conc 33.5 % (30-36); Mean Corpuscular Hemoglobin 32.2 PG (26-34); Mean Corpuscular Volume 96.2 fL (80-100); Monocytes Absolute Auto 500 /uL (0-900); Monocytes Percent Auto 5.9 % (3-14); Neutrophils Absolute Auto 5400 /uL (1500-7000); Neutrophils Percent Auto 65.8 % (50-75); Platelet Count 232 X10^3/uL (150-400); Red Cell Distribution Width 13.6 % (11.6-14.8); White Blood Cell Count 8.3 X10^3/uL (4.5-11.0)
[2024-02-13 17:06] LABS: Alanine Aminotransferase 18 IU/L (<35); Albumin 4.4 g/dL (3.5-5.0); Albumin Globulin Ratio 1.4 (1.0-2.8); Alkaline Phosphatase 69 U/L (38-126); Aspartate Aminotransferase 23 IU/L (14-36); BUN Creatinine Ratio 17.6 (6-22); Bilirubin Total 0.7 mg/dL (0.2-1.3); Blood Urea Nitrogen 16 mg/dL (7-17); Calcium 9.6 mg/dL (8.4-10.2); Carbon Dioxide 31 mmol/L (22-32); Chloride 104 mmol/L (98-107); Estimated Glomerular Filt Rate > 60 mL/min (>60); Ethanol (ETOH) < 10 mg/dL; Globulin 3.2 g/dL (1.7-4.1); Glucose 73 mg/dL (70-100); HEMOLYSIS < 15 (0-50); Potassium 4.1 mmol/L (3.4-5.1); Sodium 138 mmol/L (137-145); Total Protein 7.6 g/dL (6.3-8.2)
[2024-02-13 17:28] VITALS: BP 118/57; PULSE 77; RESP 18; TEMP 36.7; O2SAT 98
[2024-02-13 17:36] LABS: Thyroid Stimulating Hormone 0.292 uIU/mL (0.47-4.68)
--- NOTE | 2024-02-13 17:39 | CM.SWNOTE ---
ED PARISH NURSE Assessment PARISH NURSE - Dovetail Machine Operator Assessment PARISH NURSE/Dovetail Machine Operator Assessment Time Spent with Patient Start date 02/13/24 Visit Start Time 14:30 End date 02/13/24 Visit End Time 14:50 Total time Care Management spent on 25 minutes patient visit-in minutes Mental Health Screening Include Onset, Duration, Intensity Presenting Problem Patient presents to ED via POV due to concern for depression, the stress of being a new mother with limited supports. Patient denies SI and HI. Patient endorses she has been experiencing depression for several years but has noticed an increase in recent months. Precipitating Event(s) Patient endorses she had a PCP appt scheduled for herself and her 2 month old daughter but states that she began to feel overwhelmed, had a mental break down and and cancelled appt. Patient endorses she made a statement to her PCP that she wanted to stop Fluoxetine rx because it wasn't working. Patient states that LE and medics arrived at her home and she agreed to come to the ED today. Patient endorses that she adapting to being a new mother , feels alone and states that her partner (baby's father) works a lot and patient is the primary caregiver for their child and patient has not been optimal in caring for herself . Patient Strengths Patient is attentive to her daughter's needs, patient is seeking help and open to all resources provided. Current Behavioral Health Provider(s) No current provider, patient Include Facility, Provider, Ph. # is open to seeing a MH provider. Patient endorses hx of seeing a counselor several years ago in [place]. Psych. Hx Mental Health and Chemical Patient has hx of PTSD, MDD Dependency and Anxiety. Patient is prescribed 40 mg of Fluoxetine, increase in dosage in the last 3-4 weeks, prescribed by PCP. Patient engages in Marijuana and tobacco use and denies other substance use. Family Hx of Behavioral Abuse Patient endorses hx of running away as a teenager and hx with CPS. Psychiatric Hospitalizations (date(s)/ Patient endorses she was location) inpatient at [facility] in [place] in 2016. Psychosocial information & Support Patient is 23 y/o female who Systems resides with boyfriend and 2 month old daughter on [address] on boyfriend's parent's property. Patient endorses his family is a support but they are often busy as they care for their other grandchild who is disabled. 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 Thought Content - Specify/Describe Patient denies any visual or Obsessions, Delusions, Hallucinations auditory hallucinations. Thought Processes (Irhsbnh-Nvsxhnyf-Eiag logical, goal oriented Tgekxggb-Klmtbtth-Odctkcstag- Svlusfwuupmcwi-Lldscdd-Slswudwjnzdi- Thought Blocking) Speech (Awspbt-Fiwy-Sfkcktj-Rapid-Soft- normal Loud-Pressured) Motor (Rpakma-Dgxfuwcte-Xmpw-Other) normal Insight (Fvya-Ogka-Aiqv/Limited) fair Judgement (Mzel-Mrln-Vbrt/Limited) fair Impulse Control (Adequate-Impaired) adequate Memory (Qdxtamqxk-Qiklzv-Ketnun, intact, not formally assessed Impaired-Intact) Concentration (Intact-Impaired) intact Attention (Intact-Impaired) intact Behavior (Appropriate-Inappropriate) appropriate Additional Comment Patient presents as calm, cooperative and communicative. Risk Assessment Suicidal Ideation (Plan) No Homicidal Ideation (Plan) No Comment Patient denies SI and HI. Patient endorses hx of SI in the past, patient states that she attempted to kill self in 2016 when she cut herself and she was brought the the hospital by and went to facility in [place]. Patient denies any hx of SI, attempts or self harm since then. Intervention Intervention PARISH NURSE enters room to meet with patient. Patient endorses concern for increase in life stressors, depression and full decator operator caregiving for her new born daughter. Patient endorses concern for adequate sleep, food intake and managing daily needs. Patient denies SI and HI and endorses safety. Patient endorses she is looking to change her medication because her current medication has not been working. Patient endorses interest in provider to manage meds and for therapy. PARISH NURSE discusses [facility] and visiting nurse services as well and patient endorses she is open to that as well. PARISH NURSE submits referral to [facility] referral. PARISH NURSE provides patient with Peranatal and mental health resources, lists of providers that accept her insurance, crisis contacts and contact information for [facility]. Patient endorses that she has been in contact with [facility] crisis team in [facility] and states that she is scheduled to meet with Anitha on Thursday. PARISH NURSE encourages patient to f/u with PCP as well. It is the opinion of this PARISH NURSE that patient is safe to d/c to home upon medical clearance with resources provided. PARISH NURSE reviews patient with ED provider Dr. Gardner who indicates agreement and understanding. Plan RA Plan Patient to d/c to home with family upon medical clearance, patient to f/u with PCP, local crisis team to f/u with patient on Thursday, new referral in place with [facility], patient to f/ u with resources provided and to seek MH provider. ED provider identified that Psychiatrist Dr. Muro at [facility] has openings and experience with patient's experiencing post , patient encouraged to f/u with this provider. Leila Hicks, FABRIC LAY OUT WORKER
[2024-02-13 18:45] LABS: Free T4, Direct Thyroxine 1.09 ng/dL (0.78-2.19)
== END 2024-02-13 17:32 | disposition home or self-care (01) ==
PROVIDERS: Emergency Provider Emergency Medicine; PCP Family Medicine
DX: F53.0 Postpartum depression (principal)
CPT/HCPCS: 36415; 80053; 80305; 80320; 81003; 81025; 84439; 84443; 85025; 99283